=== PATIENT | male | born 1955 | race Caucasian/White ===

== ENCOUNTER 2017-05-03 08:28 | Emergency (ER) | payer SELFPAY ==
[~2017-05-03] VITALS: Ht 172.7 cm; Wt 85.0 kg
[2017-05-03 08:32] VITALS: Ht 172.7 cm; Wt 85.0 kg
[2017-05-03] MEDS ORDERED: KETOROLAC 30 MG INJ IV STA (08:43)
[2017-05-03] MEDS ORDERED: predniSONE 20 MG TAB PO ONE (09:00)
--- NOTE | 2017-05-03 09:20 | RADRPT ---
PROCEDURE: XR Foot. CLINICAL INDICATION: First MTP joint pain. TECHNIQUE: Left foot, three views. COMPARISON: None. FINDINGS: The bone mineralization is age appropriate. There is no acute fracture or dislocation. Osseous alignment appears maintained. There is mild to moderate degenerative changes of the first MTP joint. There are additional mild sca ttered degenerative changes elsewhere. Os peroneum noted. There is a tiny distal Achilles tendon enthesophyte. IMPRESSION: Mild to moderate degenerative changes of the first MTP joint without acute osseous abnormality of th e left foot. RPTAT: AAEE Crissy Verdugo Physician Date Time Electronically viewed and signed by Crissy Verdugo Physician on 05/03/2017 09:20 PH/
[2017-05-03 09:26] LABS: BASOPHILS % 0.4 % (0.0-2.0); EOSINOPHILS # 0.1 10^3/ul (0.0-0.5); HEMOGLOBIN 13.9 g/dl (14.0-18.0); LYMPHOCYTES # 1.7 10^3/ul (0.8-2.9); LYMPHOCYTES % 23.3 % (15.0-51.0); MEAN CORPUSCULAR HEMOGLOBIN 35.5 pg (29.0-33.0); MEAN CORPUSCULAR HGB CONC 35.6 g/dl (32.0-37.0); MEAN CORPUSCULAR VOLUME 99.7 fl (82.0-101.0); MEAN PLATELET VOLUME 10.7 fl (7.4-10.4); MONOCYTES % 13.9 % (0.0-11.0); NEUTROPHIL # 4.5 10^3/ul (1.6-7.5); PLATELET COUNT 210 10^3/UL (140-415); RED BLOOD COUNT 3.91 10^6/ul (4.70-6.10); RED CELL DISTRIBUTION WIDTH 12.7 % (11.5-14.5); WHITE BLOOD COUNT 7.3 10^3/ul (4.8-10.8)
[2017-05-03 09:30] VITALS: BP 137/102; PULSE 79; RESP 20
[2017-05-03 09:47] LABS: CALCIUM 9.1 mg/dl (8.4-10.2); CREATININE 0.9 mg/dl (0.61-1.24); POTASSIUM 3.9 mmol/L (3.5-5.1); URIC ACID 7.7 mg/dl (3.1-7.9)
--- NOTE | 2017-05-03 09:51 | ERD ---
ER Documentation Chief Complaint Chief Complaint left foot redness/purplish discoloration x 3 days, no injury, sent by pmd HPI This is a 61-year-old gentleman with a history of chronic back pain who is being evaluated for preoperative status when they noticed abnormal area of the left first MTP joint. The patient has describes some slight redness and irritation and swelling and pain to this area for approximately 3 days. The pain is 8 out of 10, throbbing and worse with movement. He denies any fevers or chills. No prior history of gout though the patient's diet consists regularly of meat and beer. ROS All systems reviewed and are negative except as per history of present illness. Medications Home Meds Active Scripts Prednisone* (Prednisone*) 20 Mg Tab, 40 MG PO DAILY for 4 Days, TAB Prov:ALVIN STALEY MD 05/03/17 Naproxen* (Naprosyn*) 500 Mg Tablet, 500 MG PO BID Y for PAIN AND/OR INFLAMMATION, #30 TAB Prov:ALVIN STALEY MD 05/03/17 PMhx/Soc Hx Alcohol Use: Yes (DAILY) Hx Substance Use: No Hx Tobacco Use: No Smoking Status: Never smoker Physical Exam Vitals Vital Signs Date Time Temp Pulse Resp B/P Pulse Ox O2 Delivery O2 Flow Rate FiO2 05/03/17 09:30 79 20 137/102 97 Room Air 05/03/17 08:32 98.6 88 20 127/87 98 Physical Exam Const: [] Head: Atraumatic Eyes: Normal Conjunctiva ENT: Normal External Ears, Nose and Mouth. Neck: Full range of motion..~ No meningismus. Resp: Clear to auscultation bilaterally Cardio: Regular rate and rhythm, no murmurs Abd: Soft, non tender, non distended. Normal bowel sounds Skin: No petechiae or rashes Back: No midline or flank tenderness Ext: No cyanosis, or edema Neur: Awake and alert Psych: Normal Mood and Affect Result Diagram: 05/03/1710 05/03/17 0910 Results 24 hrs Laboratory Tests Test 05/03/17 09:10 White Blood Count 7.310^3/ul Red Blood Count 3.9110^6/ul Hemoglobin 13.9g/dl Hematocrit 39.0% Mean Corpuscular Volume 99.7fl Mean Corpuscular Hemoglobin 35.5pg Mean Corpuscular Hemoglobin Concent 35.6g/dl Red Cell Distribution Width 12.7% Platelet Count 78005^3/UL Mean Platelet Volume 10.7fl Neutrophils % 61.0% Lymphocytes % 23.3% Monocytes % 13.9% Eosinophils % 1.0% Basophils % 0.4% Nucleated Red Blood Cells % 0.0/100WBC Neutrophils # 4.510^3/ul Lymphocytes # 1.710^3/ul Monocytes # 1.010^3/ul Eosinophils # 0.110^3/ul Basophils # 0.010^3/ul Nucleated Red Blood Cells # 0.010^3/ul Sodium Level 138mmol/L Potassium Level 3.9mmol/L Chloride Level 102mmol/L Carbon Dioxide Level 29mmol/L Anion Gap 11 Blood Urea Nitrogen 10mg/dl Creatinine 0.90mg/dl Glucose Level 114mg/dl Uric Acid 7.7mg/dl Calcium Level 9.1mg/dl Current Medications Medications (Trade) Dose Ordered Sig/Yao Route PRN Reason Start Time Stop Time Status Last Admin Dose Admin Ketorolac Tromethamine (Toradol) 30 mg ONCE STAT IV 05/03/17 08:43 05/03/17 08:45 DC 05/03/17 09:19 Prednisone (Prednisone) 60 mg ONCE ONCE PO 05/03/17 09:00 05/03/17 09:01 DC 05/03/17 09:22 Procedures/MDM EKG, MONITORS, & DIAGNOSTIC IMAGING: XR foot IMPRESSION: Mild to moderate degenerative changes of the first MTP joint without acute osseous abnormality of the left foot. RPTAT: AAEE LAB INTERPRETATION: No significant leukocytosis, normal uric acid MEDICAL DECISION MAKING: The patient presents to the emergency room with swelling and pain to the first MTP joint of the left foot. The patient's clinical exam is very consistent with acute gouty arthritis. The patient does have some slight erythema around the site but this is more secondary to inflammatory process. Very low pretest probability for septic arthritis. Because this is very classic for gouty arthritis I do not believe that an ESR and CRP are necessary. The patient has no fever and a normal white count and no evidence of cellulitis. ER COURSE: Patient was given anti-inflammatory medication. He took narcotic pain medication prior to arrival. The patient has controlled pain. He was given steroids. X-ray imaging shows evidence of mild degenerative changes to this area. The patient at this point is safe for outpatient management. We did discuss return precautions for fevers, uncontrolled pain. Patient verbalized understanding. I kept the patient and/or family informed of laboratory and diagnostic imaging results throughout the emergency room course. DISPOSITION PLAN: We discussed follow up with the patient's primary care doctor within 24 to 48 hours as needed. We also discussed return to the emergency room for worsening symptoms or worsening condition. Outpatient referral: [None required] Discharge Medications: Naprosyn, prednisone Departure Diagnosis: Primary Impression: Gout Gout site: foot Gout etiology: idiopathic Chronicity: acute Laterality: left Qualified Code: M10.072 - Acute idiopathic gout of left foot Condition: Stable ALVIN STALEY MD May 03, 2017 09:51
[2017-05-03] MEDS ORDERED: NAPR-260 PO (11:20)
[2017-05-03] MEDS ORDERED: PRED20TA PO (11:20)
== END 2017-05-03 17:27 | disposition home or self-care (01) ==
LOC: E/R 08:28
DX: M10.072 Idiopathic gout, left ankle and foot (principal)
CPT/HCPCS: 36415; 73630; 80048; 84560; 85025; 96374; 99284; J1885; J7512

== ENCOUNTER 2017-05-25 05:52 | Inpatient (IN) | END 2017-05-27 14:19 | disposition home or self-care (01) | DRG 520 ==